=== PATIENT | female | born 1985 | race American Indian/Alaskan Native ===

== ENCOUNTER 2019-09-21 10:46 | Emergency (ER) | payer MEDICAID ==
[2019-09-21] MEDS ORDERED: IBUPROFEN 600 MG TAB PO ONE (11:49)
[2019-09-21] MEDS ORDERED: HYDROcodone/ACETAMINOPHEN 10-325MG TAB PO ONE (11:49)
--- NOTE | 2019-09-21 11:49 | Emergency Department Report ---
ED Lower Extremity HPI - General Chief Complaint: Extremity Injury, Lower Stated Complaint: RIGHT LEG PAIN Time Seen by Provider: 09/21/19 11:42 Source: patient Mode of arrival: Ambulatory Limitations: No Limitations - History of Present Illness Initial Comments: 34-year-old -[place] female presents to the emergency room for right knee pain after kicking a door. Patient states that this happened last night. Patient reports that she took Excedrin last dose was 3 AM. Patient states that her pain is a 8 out of 10 with sitting and greater than 10 with standing or movement of her right knee. Patient denies any past medical history last menstrual period was 08/29/2019. Patient currently takes no medications on a daily basis and has no known drug allergies. MD Complaint: knee injury -: Last night Injury: Knee: Right Type of Injury: blunt Severity scale (0 -10): 8 Improves With: nothing Worsens With: weight bearing, movement, palpation Context: direct blow Associated Symptoms: swelling - Related Data Previous Rx's Medication Instructions Recorded Last Taken Type Ibuprofen [Motrin 600 MG tab] 600 mg PO Q8H PRN #30 tablet 09/21/19 Unknown Rx Oxycodone HCl/Acetaminophen 1 each PO Q6HR PRN #12 tablet 09/21/19 Unknown Rx [Percocet 7.5/325 mg] Allergies Allergy/AdvReac Type Severity Reaction Status Date / Time No Known Allergies Allergy Verified 09/21/19 10:54 ED Review of Systems ROS: Stated complaint: RIGHT LEG PAIN Other details as noted in HPI Comment: All other systems reviewed and negative ED Past Medical Hx - Past Medical History Previous Medical History?: No - Surgical History Past Surgical History?: Yes Additional Surgical History: - Social History Smoking Status: Never Smoker Substance Use Type: None - Medications Home Medications: Home Medications Medication Instructions Recorded Confirmed Last Taken Type Ibuprofen [Motrin 600 MG tab] 600 mg PO Q8H PRN #30 tablet 09/21/19 Unknown Rx Oxycodone HCl/Acetaminophen 1 each PO Q6HR PRN #12 tablet 09/21/19 Unknown Rx [Percocet 7.5/325 mg] ED Physical Exam - General Limitations: No Limitations General appearance: alert, in distress - Head Head exam: Present: atraumatic, normocephalic - Eye Eye exam: Present: normal appearance - ENT ENT exam: Present: mucous membranes moist - Neck Neck exam: Present: full ROM - Expanded Lower Extremity Exam Right Knee exam: Present: full ROM, tenderness, swelling, pain w/ pronation/supination Foot/Toe exam: Present: normal inspection, full ROM. Absent: tenderness, swelling - Back Exam Back exam: Present: normal inspection, full ROM - Neurological Exam Neurological exam: Present: alert, oriented X3 - Psychiatric Psychiatric exam: Present: normal affect, normal mood - Skin Skin exam: Present: warm, dry, intact, normal color. Absent: rash ED Course Vital Signs 09/21/19 10:51 Temperature 98.1 F Pulse Rate 91 H Respiratory 18 Rate Blood Pressure 123/66 O2 Sat by Pulse 99 Oximetry ED Lower Extremity MDM - Radiology Data Radiology results: report reviewed [address] [address] XRay Report Signed Patient: NICHOLE DIAZ MR#: [id number] : 1985 Acct:[id number] Age/Sex: 34 / F ADM Date: 09/21/19 Loc: ED Attending Dr: Ordering Physician: MARYELLEN KNOX MD Date of Service: 09/21/19 Procedure(s): XR knee 3V RT Accession Number(s): [id number] cc: ED MD LISETTE Fluoro Time In Minutes: RIGHT KNEE HISTORY: Pain and swelling. COMPARISON: None. TECHNIQUE: 3 views of the right knee obtained. FINDINGS: Bones: Irregular lucent lines in the proximal tibial metaphysis on all views are consistent with subtle nondisplaced fractures. Irregular lucency extends to an area of cortical interruption in the lateral radial plateau. Joint spaces: Maintained. Soft tissues: Large knee joint effusion. Additional findings: None. IMPRESSION: 1. Relatively subtle nondisplaced acute traumatic fractures of the lateral tibial plateau with an associated hemarthrosis. 2. Consider CT for better delineation of fractures. Signer Name: Julien Simmons MD Signed: 09/21/2019 11:59 AM Workstation Name: [id number] Transcribed By: REF Dictated By: JULIEN SIMMONS MD Electronically Authenticated By: JULIEN SIMMONS MD Signed Date/Time: 09/21/19 1159 DD/ 1150 TD/TT: [address] [address] Cat Scan Report Signed Patient: NICHOLE DIAZ MR#: [id number] : 1985 Acct:[id number] Age/Sex: 34 / F ADM Date: 09/21/19 Loc: ED Attending Dr: Ordering Physician: GISELLE LAKE Date of Service: 09/21/19 Procedure(s): CT lower extremity RT wo con Accession Number(s): [id number] cc: GISELLE LAKE CT lower extremity RT wo con INDICATION / CLINICAL INFORMATION: lateral tibial plateau fracture. TECHNIQUE: Noncontrast CT of the right knee with multiplanar reformats. All CT scans at this location are performed using CT dose reduction for ALARA by means of automated exposure control. COMPARISON: Knee radiograph from earlier the same day FINDINGS: Acute, mildly comminuted but minimally displaced fracture of the medial tibial plateau without significant articular surface depression. There are 2 separate fracture lines, both of which can be appreciated on series 2 image 72. The fractures are both in coronal oblique orientations. The anterior fracture does not involve any of the articular surface and is minimally displaced. The posterior fracture involves approximately at the posterior third of the tibial plafond and but is nondepressed and nondisplaced and is thus difficult to appreciate at the level of the subchondral bone. Both fractures cross midline (image 67). There is a moderate lipohemarthrosis. The distal femur, patella and proximal fibula are intact. IMPRESSION: 1. Acute, mildly comminuted but nondepressed and nondisplaced medial tibial plateau fracture with extension of fracture lines across midline of the tibia both anteriorly and posteriorly. Signer Name: Adam Young MD Signed: 09/21/2019 1:51 PM Workstation Name: [id number] Transcribed By: DMB Dictated By: Adam Young MD Electronically Authenticated By: Adam Young MD Signed Date/Time: 09/21/19 1351 DD/ 1341 TD/TT: - Medical Decision Making 34-year-old -[place] female presents to the emergency room for right knee pain after kicking a door. Patient states that this happened last night. Patient reports that she took Excedrin last dose was 3 AM. Patient states that her pain is a 8 out of 10 with sitting and greater than 10 with standing or movement of her right knee. Patient denies any past medical history last menstrual period was 08/29/2019. Patient currently takes no medications on a daily basis and has no known drug allergies. X-ray of right knee pending. Ibuprofen in [place] 10 mg over 325 for pain. Patient been placed in a knee immobilizer she will be discharged with crutches. Critical care attestation.: If time is entered above; I have spent that time in minutes in the direct care of this critically ill patient, excluding procedure time. ED Disposition Clinical Impression: Fracture of right knee region Disposition: - TO HOME OR SELFCARE Is pt being admited?: No Does the pt Need Aspirin: No Condition: Stable Instructions: Patellar Fracture (ED) Additional Instructions: Please take pain medication as prescribed Do not operated heavy machinery. Follow up with orthopedics. Prescriptions: Ibuprofen [Motrin 600 MG tab] 600 mg PO Q8H PRN #30 tablet PRN Reason: Pain Oxycodone HCl/Acetaminophen [Percocet 7.5/325 mg] 1 each PO Q6HR PRN #12 tablet PRN Reason: Pain Referrals: PRIMARY CAREMD [Primary Care Provider] - 3-5 Days YUSUF BROWN MD [Staff Physician] - 3-5 Days
--- NOTE | 2019-09-21 12:03 | XRay Report ---
RIGHT KNEE HISTORY: Pain and swelling. COMPARISON: None. TECHNIQUE: 3 views of the right knee obtained. FINDINGS: Bones: Irregular lucent lines in the proximal tibial metaphysis on all views are consistent with subt le nondisplaced fractures. Irregular lucency extends to an area of cortical interruption in the late ral radial plateau. Joint spaces: Maintained. Soft tissues: Large knee joint effusion. Additional findings: None. IMPRESSION: 1. Relatively subtle nondisplaced acute traumatic fractures of the lateral tibial plateau with an ass ociated hemarthrosis. 2. Consider CT for better delineation of fractures. Signer Name: Hong Deal MD Signed: 09/21/2019 11:59 AM Workstation Name: [id number]
--- NOTE | 2019-09-21 13:55 | Cat Scan Report ---
CT lower extremity RT wo con INDICATION / CLINICAL INFORMATION: lateral tibial plateau fracture. TECHNIQUE: Noncontrast CT of the right knee with multiplanar reformats. All CT scans at this location are perfor med using CT dose reduction for ALARA by means of automated exposure control. COMPARISON: Knee radiograph from earlier the same day FINDINGS: Acute, mildly comminuted but minimally displaced fracture of the medial tibial plateau without signif icant articular surface depression. There are 2 separate fracture lines, both of which can be appreci ated on series 2 image 72. The fractures are both in coronal oblique orientations. The anterior fract ure does not involve any of the articular surface and is minimally displaced. The posterior fracture involves approximately at the posterior third of the tibial plafond and but is nondepressed and nondi splaced and is thus difficult to appreciate at the level of the subchondral bone. Both fractures cros s midline (image 67). There is a moderate lipohemarthrosis. The distal femur, patella and proximal fibula are intact. IMPRESSION: 1. Acute, mildly comminuted but nondepressed and nondisplaced medial tibial plateau fracture with ex tension of fracture lines across midline of the tibia both anteriorly and posteriorly. Signer Name: Adam Young MD Signed: 09/21/2019 1:51 PM Workstation Name: [id number]
[2019-09-21 14:59] VITALS: BP 121/64
== END 2019-09-21 14:58 | disposition home or self-care (01) ==
LOC: ED 10:46
DX: S82.001A Unspecified fracture of right patella, initial encounter for closed fracture (principal); Z79.899 Other long term (current) drug therapy; W22.09XA Striking against other stationary object, initial encounter; Y93.89 Activity, other specified; Y92.89 Other specified places as the place of occurrence of the external cause; Y99.8 Other external cause status

== ENCOUNTER 2019-09-23 11:01 | Emergency (ER) | payer MEDICAID ==
[2019-09-23 11:09] VITALS: BP 118/74
--- NOTE | 2019-09-23 12:34 | Emergency Department Report ---
Chief Complaint: Extremity Problem,Nontraumatic Stated Complaint: REVISIT MEDS NOT WORKING Time Seen by Provider: 09/23/19 12:03 - HPI History of Present Illness: This is a 34-year-old female nontoxic, well nourished in appearance, no acute signs of distress presents to the ED for Percocet medication refill. Patient stated she has currently to pills left and is wanting more. Patient otherwise denies any new complaints or symptoms. Patient was seen for right knee fracture a few days ago and was instructed to follow-up with a orthopedic but patient did not. Patient denies any numbness, tingling, fever, chills, nausea, vomiting, headache or stiff neck. Patient denies any allergies. - Exam Vital Signs: Vital Signs 09/23/19 11:08 Temperature 98 F Pulse Rate 106 H Respiratory 18 Rate Blood Pressure 118/74 O2 Sat by Pulse 98 Oximetry Physical Exam: My physical exam GENERAL: The patient is a well-developed, well-nourished in no apparent distress. Patient is alert and acting appropriately for age. Alert and oriented 3, no apparent distress, normal gait, atraumatic. EXTREMITIES: Without any cyanosis, clubbing, rash, lesions or edema. Peripheral pulses intact. Capillary refill less than 2 seconds. Full range of motion bilaterally with some pain to right knee. MSE screening note: Focused history and physical exam performed. Due to findings the following was ordered: ED Medical Decision Making - Medical Decision Making This is a 34-year-old female that presents with nonmedical emergency. Patient is stable and was examined by me. I will refer the patient [facility] and orthopedic/PCP. At time of discharge, the patient does not seem toxic or ill in appearance. No acute signs of distress noted. Patient agrees to discharge treatment plan of care. No further questions noted by the patient. ED Disposition for MSE Clinical Impression: Medication refill Disposition: Z-07 MED SCREENING EXAM-LEFT Is pt being admited?: No Does the pt Need Aspirin: No Condition: Stable Additional Instructions: Follow-up with a primary care and orthopedic doctor in 3-5 days or if symptoms worsen and continue return to emergency room as soon as possible. Referrals: PRIMARY CAREMD [Referring] - 3-5 Days MELVA DEGROOT MD [Staff Physician] - 3-5 Days YUSUF BROWN MD [Staff Physician] - 3-5 Days
== END 2019-09-23 13:21 | disposition left against medical advice (07) ==
LOC: ED 11:01
DX: Z76.0 Encounter for issue of repeat prescription (principal)
CPT/HCPCS: 99281

== ENCOUNTER 2020-10-13 19:27 | Emergency (ER) | payer MEDICAID ==
[2020-10-13 19:45] VITALS: BP 118/78
[2020-10-13 20:16] LABS: Basophils % (Auto) 0.4 % (0.0-1.8); Eosinophils # (Auto) 0.3 K/mm3 (0.0-0.4); Eosinophils % (Auto) 2.9 % (0.0-4.3); Hematocrit 41.4 % (30.3-42.9); Hemoglobin 14.7 gm/dl (10.1-14.3); Lymphocytes # (Auto) 1.4 K/mm3 (1.2-5.4); Lymphocytes % (Auto) 15.5 % (13.4-35.0); Mean Corpuscular HGB Conc 35 % (30-34); Mean Corpuscular Volume 91 fl (79-97); Monocytes # (Auto) 0.9 K/mm3 (0.0-0.8); Monocytes % (Auto) 10.3 % (0.0-7.3); Platelet Count 274 K/mm3 (140-440); Red Blood Count 4.54 M/mm3 (3.65-5.03); Red Cell Distribution Width 13.3 % (13.2-15.2)
[2020-10-13 20:39] LABS: Alanine Aminotransferase 15 units/L (7-56); Albumin 4.1 g/dL (3.9-5); Blood Urea Nitrogen 15 mg/dL (7-17); Calcium 9.1 mg/dL (8.4-10.2); Hemolysis Index 8
[2020-10-13 20:40] LABS: BUN/Creatinine Ratio 25
--- NOTE | 2020-10-13 21:03 | XRay Report ---
CHEST 2 VIEWS INDICATION / CLINICAL INFORMATION: CP. COMPARISON: None available. FINDINGS: SUPPORT DEVICES: None. HEART / MEDIASTINUM: No significant abnormality. LUNGS / PLEURA: No significant pulmonary or pleural abnormality. No pneumothorax. ADDITIONAL FINDINGS: No significant additional findings. IMPRESSION: 1. No acute findings. Signer Name: London Camargo MD Signed: 10/13/2020 8:58 PM Workstation Name: [id number]
--- NOTE | 2020-10-13 21:13 | Emergency Department Report ---
ED Palpitations HPI - General Chief Complaint: Arrhythmia/Palpitations Stated Complaint: CHEST PAIN;PALPITATIONS;SOB Time Seen by Provider: 10/13/20 21:07 Source: patient Mode of arrival: Ambulatory Limitations: No Limitations - History of Present Illness Initial Comments: 35-year-old -[place] female with no reported past medical history with exception of smoking since the age of 16 presents emerged department complaining of a 2 to 3-week history of episodes of palpitations of various durations of an unknown etiology. She states that these occur typically when she is at rest for no reason to her knowledge. She also been having some vague issues of shortness of breath for last 3 to 4 days which may or may not be related to the palpitati ons. States that due to the palpitations she decided to quit smoking 5 days ago in hopes that her coming off nicotine will help to mitigate the symptoms. She reports no known lifestyle changes, no fever, chills, sweats, no loss of bladder, notes no chest pain, no syncope. -: Gradual Context: occured during rest Associated Symptoms: denies: anxiety, cough, parasthesias, feeling of impending doom, muscle cramps - Related Data Previous Rx's Medication Instructions Recorded Last Taken Type Ibuprofen [Motrin 600 MG tab] 600 mg PO Q8H PRN #30 tablet 09/21/19 Unknown Rx Oxycodone HCl/Acetaminophen 1 each PO Q6HR PRN #12 tablet 09/21/19 Unknown Rx [Percocet 7.5/325 mg] Allergies Allergy/AdvReac Type Severity Reaction Status Date / Time No Known Allergies Allergy Verified 01/11/20 11:22 ED Review of Systems ROS: Stated complaint: CHEST PAIN;PALPITATIONS;SOB Other details as noted in HPI Comment: All other systems reviewed and negative ED Past Medical Hx - Past Medical History Previous Medical History?: No - Surgical History Past Surgical History?: Yes Additional Surgical History: X 1 - Social History Smoking Status: Never Smoker Substance Use Type: Alcohol - Medications Home Medications: Home Medications Medication Instructions Recorded Confirmed Last Taken Type Ibuprofen [Motrin 600 MG tab] 600 mg PO Q8H PRN #30 tablet 09/21/19 Unknown Rx Oxycodone HCl/Acetaminophen 1 each PO Q6HR PRN #12 tablet 09/21/19 Unknown Rx [Percocet 7.5/325 mg] ED Physical Exam - General Limitations: No Limitations General appearance: alert, in no apparent distress - Head Head exam: Present: atraumatic, normocephalic - Eye Eye exam: Present: normal appearance, PERRL, EOMI Pupils: Present: normal accommodation - ENT ENT exam: Present: normal exam, mucous membranes moist - Neck Neck exam: Present: normal inspection, full ROM - Respiratory Respiratory exam: Present: normal lung sounds bilaterally. Absent: respiratory distress, wheezes, rales, chest wall tenderness - Cardiovascular Cardiovascular Exam: Present: regular rate, normal rhythm, normal heart sounds. Absent: bradycardia, tachycardia, systolic murmur, diastolic murmur, rubs, gallop - GI/Abdominal GI/Abdominal exam: Present: soft, normal bowel sounds - Extremities Exam Extremities exam: Present: normal inspection - Back Exam Back exam: Present: normal inspection - Neurological Exam Neurological exam: Present: alert, oriented X3 - Psychiatric Psychiatric exam: Present: normal affect, normal mood - Skin Skin exam: Present: warm, dry, intact, normal color. Absent: rash ED Course Vital Signs 10/13/20 19:43 Temperature 98.2 F Pulse Rate 83 Respiratory 18 Rate Blood Pressure 118/78 O2 Sat by Pulse 99 Oximetry ED Medical Decision Making - Lab Data Result diagrams: 10/13/20 20:02 10/13/20 20:02 - EKG Data EKG shows normal: sinus rhythm Rate: normal - EKG Data Interpretation: normal EKG 10/13/20 21:11 EKG was taken in 11/18/1948 and signed at 1955 - Medical Decision Making Patient presents to emergency department with palpitations and ECG is noted to be indicative of a normal sinus rhythm. Palpitations are unlikely secondary to other concomitant causes such as pulmonary embolus or acute coronary syndrome. The immediate cause is not apparent. Potential causes considered include but are not limited to infection, hypothyroidism, bone embolism, pericarditis, dehydration, anemia, pheochromocytoma, drug and alcohol withdrawal or intoxication among other things. Despite the evaluation including history, examination, testing, the cause of the palpitations remains unclear however the history, exam, the chest do not raise concern for any of the aforementioned diagnoses. Disposition; during emergency stay the patient's vital signs and symptoms were stable concerning Critical care attestation.: If time is entered above; I have spent that time in minutes in the direct care of this critically ill patient, excluding procedure time. ED Disposition Clinical Impression: Palpitations with regular cardiac rhythm Disposition: TO HOME OR SELFCARE Is pt being admited?: No Does the pt Need Aspirin: No Condition: Stable Instructions: Palpitations, Palpitations, [id number] Additional Instructions: Please follow-up with cardiology for further evaluation of your palpitations there is no definitive findings were discovered on your examination today. Please read the accompanying palpitations patient information annual and refrain from known Triggers of palpitations Referrals: PRIMARY CAREMD [Primary Care Provider] - 3-5 Days FRANNY SCHOFIELD MD [Staff Physician] - 3-5 Days
== END 2020-10-13 22:41 | disposition home or self-care (01) ==
LOC: ED 19:27
DX: R00.2 Palpitations (principal); Z98.890 Other specified postprocedural states; Z79.1 Long term (current) use of non-steroidal anti-inflammatories (NSAID); Z79.899 Other long term (current) drug therapy
CPT/HCPCS: 36415; 71046; 80053; 84484; 85025